=== PATIENT | male | born 1955 | race Asian ===

== ENCOUNTER 2021-08-07 14:30 | Inpatient (IN) | payer OTHER ==
[~2021-08-07] VITALS: Ht 190.5 cm; Wt 83.6 kg
[~2021-08-07 14:30] MED LIST: ALBU90AE13 INH; ALBUSOL INH; ALPHAGAN P0.1 % OPTH; ALUMSUS6 PO; APIX1TAB PO; AQUAPHOR EX; AQUAPHOR TOP; ASPIRIN DR81 MG PO; ATOR20TA2 PO; BRIM0.2S OPTH; CARV6.25 PO; CEFEPIME1 G2 IV; CEPH500C20 PO; CLARITIN10 MG PO; CLOP75TA2 PO; COLL250O TOP; COREG 6.25MG TAB PO; CYPROHEPTADINE H4 MG PO; DAKINS 0.125% EX; DILAUDID1 MG/M1 IV; DIPH25CA90 PO; DOXYCYCL HYC100 MG PO; DULO30CA PO; EC-NAPROXEN500 MG PO; ELIQUIS5 MG PO; ENTERIC COATED325 MG PO; GABA400C2 PO; GLIP10TA55 PO; GLUCOTROL XL 5MG TAB PO; HYDRALAZINE20 MG/ML IV; INSU100P SC; INSU300I SC; LANTUS100 UNIT/M SC; LATA0.00 OPTH; LIPITOR80 MG PO; LISI20TA11 PO; LORA2INJ21 IVP; LORAZEPAM INT2 MG/ML IV; METF500T PO; METFORMIN ER1000 MG PO; MIRALAX17 GM PO; NEURONTIN 100M100 MG PO; NEURONTIN800 MG PO; NICOTINE S21 MG/24 H TD; NOVOLOG100 UNIT/M SC; OMEPRAZOLE DR20 MG PO; ONDA2INJ2 IV; OXYC5TAB53 PO; PANTOPRAZOLE 40MG TA PO; PREMIUM LIDOCAINE5 % EX; QMIIZ ODT15 MG PO; QUET100T2 PO; QUETIAPINE300 MG PO; SEROQUEL200 MG PO; SERTRALINE HYDR50 MG PO; SPIRIVA RE1.25 MCG/A INH; TIOTCAP2 PO; TRAMADOL HYDROC50 MG PO; TRESIBA100 UNIT/M SC; TYLENOL 500MG TAB PO; TYLENOL325 MG PO; ULTRAM 50MG TAB PO; VANCOMYCIN IV; WELLBUTRIN150 MG PO; XALATAN0.005 % OPTH; ZESTRIL40 MG PO; [UNRECOGNIZED DRUG - OTHER] EX; [UNRECOGNIZED DRUG - OTHER] PO
[2021-08-07 15:59] VITALS: BP 127/71; TEMP 98
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
--- NOTE | 2021-08-07 16:14 | NUR ---
08/07/[address] VIA WHEELCHAIR.RADIOLOGIST STARTED SL TO LT AC 22GAUDGE.CC 08/07/21 1616 BACK TO ROOM VIA WHEELCHAIR.CC
[2021-08-07 20:00] VITALS: BP 128/81; TEMP 98.8
--- NOTE | 2021-08-07 22:30 | NUR ---
RECEIVED A CALL FROM [facility] IN REFERENCE TO PATIENT CT SCAN RESULTS. TECH STATES THAT THE RADIOLOGIST WAS WANTING TO MAKE SURE WE GOT THE READING AND FORWARDED IT TO THE MD LIFESTYLE DIRECTOR. CT RESULTS PRINTED ON THE PRINTER I WAS ON THE PHONE WITH THE TECH. I IMMEDIATELY CALLED DR. REED THE ER PHYSICIAN COVERING AT NIGHT FOR OUR HOSPITALIST AND READ THE RESULTS TO HIM. AT 2245 DR. REED IN PATIENTS ROOM TO EXAMINE HIS LEFT FOOT AND STATED TO ME THAT HE WAS GOING TO ATTEMPT TO FIND A SURGEON TO TRANSFER THE PATIENT TO [facility] BECAUSE CT READING STATES POSSIBLY NECROTIZING FASCIITIS. PATIENT INFORMED OF PHYSICIAN FINDINGS, CT SCAN RESULTS AND PLAN TO TRANSFER TO A SURGEON [facility] AND IS IN AGREEMENT. CONSENT FOR TRANSFER SIGNED BY PATIENT. PATIENT IS ALERT AND ORIENTED X 3 AND VERBALIZES UNDERSTANDING OF ALL INFORMATION GIVEN AND DENIES ANY QUESTIONS AT THIS TIME.
--- NOTE | 2021-08-07 23:10 | NUR ---
DR. REED RETURNED TO THE NURSES STATION AND STATES HE HAS AN ACCEPTING HOSPITALIST DR. WEIR AND AN ACCEPTING SURGEON DR. MAYO AT [facility] IN [facility] AND ADVISED ME THAT THE TRANSFER CENTER WOULD BE CALLING WITH A ROOM ASSIGNMENT AND A TELEPHONE NUMBER TO CALL PATIENT REPORT TO.
[2021-08-08 00:02] VITALS: BP 125/81; TEMP 98.5
--- NOTE | 2021-08-08 00:30 | NUR ---
DR. REED CALLED NURSES STATION AND ASKED IF WE HAD ROOM ASSIGNMENT YET AND WE DID NOT SO HE ASKED IF I WOULD CALL TRANSFER CENTER AT [facility] BACK AND INQUIRE IF THEY KNEW HIS BED ASSIGNMENT YET THIS IS AN URGENT MEDICAL ISSUE. I CALLED [facility] TRANSFER [facility] AND SPOKE TO SARA WHO PUT ME ON HOLD TO CHECK IF ANY NEWS. SARA RETURNED TO THE CALL AFTER 2-3 MINUTES AND STATED YES PATIENT IS GOING TO PCU#3 AND PHONE NUMBER TO CALL REPORT IS [phone].
--- NOTE | 2021-08-08 00:35 | NUR ---
PATIENT REPORT GIVEN TO MIRIAN BARCLAY IN PCU, PATIENT IS GOING TO BE TRANSFERRED TO [facility] IN [facility]IA [facility] FOR SERVICES OF HOSPITALIST DR. ETIENNE AND DR. MAYO THE SURGEON. MIRIAN BARCLAY STATES SHE HAS NO FURTHER QUESTIONS ON PATIENT AND WILL BE EXPECTING HIM SHORTLY. [facility] NOTIFIED AFTER BED WAS ASSIGNED FROM TRANSFER CENTER TO CALL NEXT CREW IN. AFTER I CALLED REPORT AT 0035 I IMMEDIENTLY CALLED [facility] TO MAKE THEM AWARE PATIENT IS READY FOR TRANSPORT.
--- NOTE | 2021-08-08 02:14 | NUR ---
PATIENT TRANSFERRED TO [facility] IN [facility] VIA [facility] PER [facility]. PATIENT REMAINS ALERT AND ORIENTED X 3, SKIN WARM AND DRY AND VITAL SIGNS WITHIN THE NORMAL LIMITS. PATIENT HAS REMAINED AFEBRILE THROUGHOUT THIS SHIFT AND HIS PAIN HAS BEEN CONTROLLED WITH HIS PRN DOSE OF MORPHINE 4MG SLOW IVP. [facility] GIVEN REPORT ON THE PATIENT AND DENIES ANY FURTHER QUESTIONS.
--- NOTE | 2021-08-08 08:44 | NUR ---
Patient transferred out prior to discharge planning.
--- NOTE | 2021-08-08 13:47 | NUR ---
Spoke with patient brother Amado Melgar @[phone] and went over important message from medicare. Waterworks Supervisor answered any questions that Mr. Fischer had and will mail him important message to [address] [id number].
== END 2021-08-08 02:01 | disposition short-term general hospital (02) | DRG 558 ==
LOC: MED/SURG 14:30
PROVIDERS: ADMIT Internal Medicine Endocrinology, Diabetes & Metabolism; ATTEND Internal Medicine Endocrinology, Diabetes & Metabolism
DX: M72.6 Necrotizing fasciitis (principal); F33.2 Major depressive disorder, recurrent severe without psychotic features; F14.20 Cocaine dependence, uncomplicated; Z89.511 Acquired absence of right leg below knee; E11.621 Type 2 diabetes mellitus with foot ulcer; Z79.899 Other long term (current) drug therapy; I48.91 Unspecified atrial fibrillation; I25.10 Atherosclerotic heart disease of native coronary artery without angina pectoris; I10 Essential (primary) hypertension; E78.49 Other hyperlipidemia; J44.9 Chronic obstructive pulmonary disease, unspecified; I73.89 Other specified peripheral vascular diseases; F12.20 Cannabis dependence, uncomplicated; F10.20 Alcohol dependence, uncomplicated; F60.2 Antisocial personality disorder; B95.61 Methicillin susceptible Staphylococcus aureus infection as the cause of diseases classified elsewhere
CPT/HCPCS: 85652; 87040; 87070; 87077; 87185; 87186; 87205; 87635; J1815; J1956; J2270; J2543; J3370; Q9963; U0003